=== PATIENT | male | born 1990 | race American Indian/Alaskan Native ===

== ENCOUNTER 2019-02-08 16:48 | Emergency (ER) | payer SELFPAY ==
--- NOTE | 2019-02-08 17:50 | Emergency Department Report ---
ED ENT HPI - General Chief complaint: Dental/Oral Stated complaint: MOUTH/HEAD PAIN Time Seen by Provider: 02/08/19 17:45 Source: patient Mode of arrival: Ambulatory Limitations: No Limitations - History of Present Illness Initial comments: This is a 28-year-old female nontoxic well in appearance with no signs of distress presents to the ED with complaint of toothache. Patient denies any facial swelling. Denies following up with a dentist. Denies any fever, chills, headache, nausea, vomiting, chest pain or SOB. Denies any other complaints. Denies any allergies. MD complaint: tooth pain -: days(s) Severity: mild Severity scale (0 -10): 8 Quality: aching Consistency: constant Improves with: none Worsens with: none Context- Dental: history of dental caries, poor dental care Associated Symptoms: gum swelling, toothache. denies: fever, cough, pain with swallowing, sore throat, tinnitus, hearing loss, discharge from ear, rhinorrhea - Related Data Previous Rx's Medication Instructions Recorded Last Taken Type Acetaminophen/Codeine [Tylenol 1 tab PO Q6H PRN #12 tab 02/08/19 Unknown Rx /Codeine # 3 tab] Amoxicillin [Amoxicillin TAB] 875 mg PO BID #20 tablet 02/08/19 Unknown Rx Chlorhexidine Mouthwash [Peridex] 15 ml MM BID #1 bottle 02/08/19 Unknown Rx Allergies Allergy/AdvReac Type Severity Reaction Status Date / Time No Known Allergies Allergy Unverified 02/08/19 16:51 ED Dental HPI - General Chief complaint: Dental/Oral Stated complaint: MOUTH/HEAD PAIN Time Seen by Provider: 02/08/19 17:45 Source: patient Mode of arrival: Ambulatory Limitations: No Limitations - Related Data Previous Rx's Medication Instructions Recorded Last Taken Type Acetaminophen/Codeine [Tylenol 1 tab PO Q6H PRN #12 tab 02/08/19 Unknown Rx /Codeine # 3 tab] Amoxicillin [Amoxicillin TAB] 875 mg PO BID #20 tablet 02/08/19 Unknown Rx Chlorhexidine Mouthwash [Peridex] 15 ml MM BID #1 bottle 02/08/19 Unknown Rx Allergies Allergy/AdvReac Type Severity Reaction Status Date / Time No Known Allergies Allergy Unverified 02/08/19 16:51 ED Review of Systems ROS: Stated complaint: MOUTH/HEAD PAIN Other details as noted in HPI Constitutional: denies: chills, fever Eyes: denies: eye pain, eye discharge, vision change ENT: dental pain. denies: ear pain, throat pain Respiratory: denies: cough, shortness of breath, wheezing Cardiovascular: denies: chest pain, palpitations Endocrine: no symptoms reported Gastrointestinal: denies: abdominal pain, nausea, diarrhea Genitourinary: denies: urgency, dysuria Musculoskeletal: denies: back pain, joint swelling, arthralgia Skin: denies: rash, lesions Neurological: denies: headache, weakness, paresthesias Psychiatric: denies: anxiety, depression Hematological/Lymphatic: denies: easy bleeding, easy bruising ED Past Medical Hx - Past Medical History Previous Medical History?: No - Surgical History Past Surgical History?: Yes Additional Surgical History: Left knee surgery x 2 - Medications Home Medications: Home Medications Medication Instructions Recorded Confirmed Last Taken Type Acetaminophen/Codeine [Tylenol 1 tab PO Q6H PRN #12 tab 02/08/19 Unknown Rx /Codeine # 3 tab] Amoxicillin [Amoxicillin TAB] 875 mg PO BID #20 tablet 02/08/19 Unknown Rx Chlorhexidine Mouthwash [Peridex] 15 ml MM BID #1 bottle 02/08/19 Unknown Rx ED Physical Exam - General Limitations: No Limitations General appearance: alert, in no apparent distress - Head Head exam: Present: atraumatic, normocephalic - Eye Eye exam: Present: normal appearance - Expanded ENT Exam Expanded Ear exam: Present: normal external inspection Mouth exam: Present: normal external inspection. Absent: drooling, trismus, muffled voice Teeth exam: Present: dental tenderness #, gingival enlargement, other (no facial swelling). Absent: dental caries, fractured tooth # Throat exam: Positive: normal inspection, other (uvula midline. no abscess). Negative: tonsillar erythema, tonsillomegaly, tonsillar exudate, R peritonsillar mass, L peritonsillar mass - Neck Neck exam: Present: normal inspection, full ROM. Absent: tenderness, meningismus, lymphadenopathy - Extremities Exam Extremities exam: Present: normal inspection, full ROM - Back Exam Back exam: Present: normal inspection, full ROM - Neurological Exam Neurological exam: Present: alert, oriented X3 - Psychiatric Psychiatric exam: Present: normal affect, normal mood - Skin Skin exam: Present: warm, dry, intact, normal color. Absent: rash ED Course - Reevaluation(s) Reevaluation #1: 02/08/19 17:47 Patient is speaking in full sentences with no signs of distress noted. ED Medical Decision Making - Medical Decision Making Patient was instructed to Follow-up with a dentist doctor in 3-5 days or if symptoms worsen and continue return to emergency room as soon as possible. At time of discharge, the patient does not seem toxic or ill in appearance. No acute signs of distress noted. Patient agrees to discharge treatment plan of care. No further questions noted by the patient. Critical care attestation.: If time is entered above; I have spent that time in minutes in the direct care of this critically ill patient, excluding procedure time. ED Disposition Clinical Impression: Gingivitis Disposition: - TO HOME OR SELFCARE Is pt being admited?: No Does the pt Need Aspirin: No Condition: Stable Instructions: Acetaminophen/Codeine (By mouth), Gingivitis (ED) Additional Instructions: Follow-up with a dentist doctor in 3-5 days or if symptoms worsen and continue return to emergency room as soon as possible. Prescriptions: Amoxicillin [Amoxicillin TAB] 875 mg PO BID #20 tablet Chlorhexidine Mouthwash [Peridex] 15 ml MM BID #1 bottle Acetaminophen/Codeine [Tylenol /Codeine # 3 tab] 1 tab PO Q6H PRN #12 tab PRN Reason: Pain , Severe (7-10) Referrals: PRIMARY CARE, [Referring] - 3-5 Days REJI BOND MD [Staff Physician] - 3-5 Days [facility] [Outside] - 3-5 Days Forms: Work/School Release Form(ED)
[2019-02-08 17:51] VITALS: BP 107/78
== END 2019-02-08 18:10 | disposition home or self-care (01) ==
LOC: ED 16:48
DX: K05.10 Chronic gingivitis, plaque induced (principal); K02.9 Dental caries, unspecified; Z79.899 Other long term (current) drug therapy
CPT/HCPCS: 99282